=== PATIENT | male | born 1955 | race Caucasian/White ===

== ENCOUNTER 2017-12-17 16:09 | Inpatient (IN) | payer MEDICAID, OTHER ==
[~2017-12-17] VITALS: Ht 177.8 cm; Wt 60.3 kg
[2017-12-17] MEDS ORDERED: dexamethasone 4mg tablet PO ONE (16:25)
[2017-12-17] MEDS ORDERED: ipratropium/albuterol 3ml nebule NEB ONE (16:25)
[2017-12-17] MEDS ORDERED: CefTRIAXone 2gm/NS 100ml IVPB 100 ML IV ONE (16:30)
[2017-12-17] MEDS ORDERED: azithromycin 250mg tablet PO ONE (16:30)
[2017-12-17 16:41] LABS: BASOPHILS % (AUTO) 0.3 % (0-1); EOSINOPHILS # (AUTO) 0.2 X10'3 (0-0.9); EOSINOPHILS % (AUTO) 1.3 % (0-6); HEMATOCRIT 36.2 % (42.0-52.0); HEMOGLOBIN 12.1 g/dl (14.0-17.9); LYMPHOCYTES # (AUTO) 1.6 X10'3 (1.1-4.8); LYMPHOCYTES % (AUTO) 12.4 % (21-51); MEAN CORPUSCULAR HEMOGLOBIN 29.2 PG (27.0-31.0); MEAN CORPUSCULAR HGB CONC 33.5 % (33.0-36.5); MEAN CORPUSCULAR VOLUME 87.1 FL (78-98); MEAN PLATELET VOLUME 7.6 FL (7.4-10.4); MONOCYTES # (AUTO) 1.3 X10'3 (0-0.9); MONOCYTES % (AUTO) 9.5 % (2-12); NEUTROPHILS # (AUTO) 10.1 X10'3 (1.8-7.7); NEUTROPHILS % (AUTO) 76.5 % (42-75); PLATELET COUNT 759 X10'3 (140-440); RED BLOOD COUNT 4.16 X10'6 (4.70-6.10); RED CELL DISTRIBUTION WIDTH 13.5 % (11.5-14.5); WHITE BLOOD COUNT 13.1 X10'3 (4.5-11.0)
[2017-12-17 16:51] LABS: ABG BASE EXCESS 5.1 mmol/L (-2.0-3.0); ABG HCO3 29.4 mmol/L (22.0-26.0); ABG PCO2 (T) 42.2 mmHg (35.0-48.0); ABG PH (T) 7.461 (7.350-7.450); ABG PO2 (T) 77.7 mmHg (83-108); ALLEN'S TEST Positive; FLOW 4 L/min; FMetHb 0.1 % (0.3-1.12); TOTAL HEMOGLOBIN 12.2 G/dl (14.0-18.0)
[2017-12-17] MEDS ORDERED: NO HOME MEDS (17:05)
[2017-12-17 17:10] LABS: ALANINE AMINOTRANSFERASE 23 U/L (12-78); ALBUMIN 2.1 G/DL (3.4-5.0); ALBUMIN/GLOBULIN RATIO 0.3 (1.1-1.5); ALKALINE PHOSPHATASE 58 IU/L (46-116); ANION GAP 5 (8-16); ASPARTATE AMINO TRANSFERASE 18 U/L (10-37); BILIRUBIN,TOTAL 0.5 MG/DL (0.1-1.0); BLOOD UREA NITROGEN 10 MG/DL (7-18); BUN/CREATININE RATIO 13.7 (5.4-32.0); CALCIUM 8.7 MG/DL (8.5-10.1); CHLORIDE 101 MMOL/L (99-107); CREATININE 0.73 MG/DL (0.60-1.10); GLUCOSE 113 MG/DL (70-104); POTASSIUM 4.6 MMOL/L (3.5-5.1); SODIUM 139 MMOL/L (135-145); TOTAL PROTEIN 8.2 G/DL (6.4-8.2); eGFR > 90 ML/MIN
[2017-12-17 17:11] LABS: PLATELET ESTIMATE INCREASED; ROULEAUX 1+; TOTAL CELLS COUNTED 100
[2017-12-17 17:12] LABS: POLYCHROMASIA 1+; TOXIC GRANULATION 1+
[2017-12-17] MEDS ORDERED: heparin 10,000 units/1 ML INJ IV ONE ×2 (17:25→17:45)
[2017-12-17] MEDS ORDERED: heparin 10,000 units/1 ML INJ IV PRN (17:45)
[2017-12-17] MEDS ORDERED: iohexol 350MG/ML 100ml bottle IV ONE (17:49)
[2017-12-17 17:51] LABS: INR 1.1 INR
[2017-12-17] MEDS ORDERED: albuterol 2.5 MG/3 ML nebule CONTNEB PRN (21:45)
[2017-12-17] MEDS ORDERED: ondansetron/PF 4mg/2ml inj IV PRN (23:45)
[2017-12-17] MEDS ORDERED: mag hydrox/Alum hydrox/simeth 30ml oral suspension PO PRN (23:45)
[2017-12-17] MEDS ORDERED: magnesium 4gm in 100ml NS 100 ML IV PRN (23:45)
[2017-12-17] MEDS ORDERED: magnesium 2GM in 50ml NS 50 ML IV PRN (23:45)
[2017-12-17] MEDS ORDERED: magnesium hydroxide 30ml (MOM) UD suspension PO PRN (23:45)
[2017-12-17] MEDS ORDERED: potassium Cl 20 mEq SR tablet PO PRN ×2 (23:45)
[2017-12-17] MEDS ORDERED: potassium Cl 40MEQ/NS 500ml 500 ML IV PRN ×2 (23:45)
[2017-12-17] MEDS ORDERED: acetaminophen 325mg tablet PO PRN (23:45)
[2017-12-17] MEDS ORDERED: HYDROcodone/acetaminophen 10/325mg tab PO PRN (23:45)
[2017-12-17] MEDS ORDERED: magnesium Cl slow-release 64mg tablet PO PRN (23:45)
[2017-12-18] MEDS ORDERED: albuterol 2.5 MG/3 ML nebule NEB PRN (01:45)
[2017-12-18] MEDS: ipratropium/albuterol 3ml nebule NEB SCH ×3 (03:36→15:29)
[2017-12-18] MEDS: methylPREDNISolone sod succ 125mg/2ml vial IV SCH ×4 (04:32→19:50)
[2017-12-18] MEDS: normal saline 1000ml 1,000 ML IV SCH ×2 (04:33→13:25)
[2017-12-18 06:21] LABS: BASOPHILS % (AUTO) 0.1 % (0-1); EOSINOPHILS # (AUTO) 0.1 X10'3 (0-0.9); EOSINOPHILS % (AUTO) 1.7 % (0-6); HEMATOCRIT 32.9 % (42.0-52.0); HEMOGLOBIN 11.2 g/dl (14.0-17.9); LYMPHOCYTES # (AUTO) 0.4 X10'3 (1.1-4.8); LYMPHOCYTES % (AUTO) 5.3 % (21-51); MEAN CORPUSCULAR HEMOGLOBIN 29.4 PG (27.0-31.0); MEAN CORPUSCULAR HGB CONC 34.1 % (33.0-36.5); MEAN CORPUSCULAR VOLUME 86.2 FL (78-98); MEAN PLATELET VOLUME 7.4 FL (7.4-10.4); MONOCYTES # (AUTO) 0.3 X10'3 (0-0.9); NEUTROPHILS # (AUTO) 7.6 X10'3 (1.8-7.7); NEUTROPHILS % (AUTO) 89.9 % (42-75); PLATELET COUNT 590 X10'3 (140-440); RED BLOOD COUNT 3.82 X10'6 (4.70-6.10); RED CELL DISTRIBUTION WIDTH 13.2 % (11.5-14.5); WHITE BLOOD COUNT 8.5 X10'3 (4.5-11.0)
[2017-12-18 06:35] LABS: PLATELET ESTIMATE INCREASED; TOTAL CELLS COUNTED 100
[2017-12-18 06:36] LABS: MICROCYTOSIS FEW; POLYCHROMASIA FEW
[2017-12-18 06:49] LABS: ALANINE AMINOTRANSFERASE 25 U/L (12-78); ALBUMIN 1.9 G/DL (3.4-5.0); ALBUMIN/GLOBULIN RATIO 0.3 (1.1-1.5); ALKALINE PHOSPHATASE 54 IU/L (46-116); ANION GAP 5 (8-16); ASPARTATE AMINO TRANSFERASE 12 U/L (10-37); BILIRUBIN,TOTAL 0.3 MG/DL (0.1-1.0); BLOOD UREA NITROGEN 17 MG/DL (7-18); BUN/CREATININE RATIO 21.8 (5.4-32.0); CALCIUM 8.3 MG/DL (8.5-10.1); CHLORIDE 105 MMOL/L (99-107); CREATININE 0.78 MG/DL (0.60-1.10); GLUCOSE 205 MG/DL (70-104); MAGNESIUM 2.2 MG/DL (1.5-2.4); SODIUM 141 MMOL/L (135-145); TOTAL PROTEIN 7.4 G/DL (6.4-8.2); eGFR > 90 ML/MIN
[2017-12-18] MEDS: K and/or MAG REPLACEMENT MC SCH (07:33)
[2017-12-18] MEDS: pantoprazole 40mg Tablet.DR PO SCH (07:50)
[2017-12-18] MEDS: lactobacillus rhamnosus 10,000 MMU CELLS/CAPSULE PO SCH ×2 (08:12→19:50)
[2017-12-18] MEDS: CefTRIAXone 2gm/NS 100ml IVPB 100 ML IV SCH (08:15)
[2017-12-18] MEDS: heparin, porcine 5000 units/ml vial SQ SCH ×2 (08:16→19:50)
[2017-12-18] MEDS ORDERED: dextrose ORAL solution 15 GM/59 ML bottle PO PRN ×2 (11:55)
[2017-12-18] MEDS ORDERED: dextrose 50%-water 50ml dispensing syringe IV PRN ×2 (11:55)
[2017-12-18] MEDS ORDERED: glucagon, human recombinant 1mg kit SUBCUT PRN (11:55)
[2017-12-18] MEDS ORDERED: MESSAGE TO PHARMACY PO ONE (11:55)
[2017-12-18] MEDS: insulin Lispro (HumaLOG) vial - multi-dose SQ SCH (15:23)
[2017-12-18 19:00] VITALS: BP 114/56
[2017-12-18] MEDS: insulin glargine (Lantus) pen - multi-dose SQ SCH (21:39)
[2017-12-18] MEDS: temazepam 15mg capsule PO PRN (22:51)
[2017-12-19] VITALS: BP 114/56
[2017-12-19] MEDS: ipratropium/albuterol 3ml nebule NEB SCH ×5 (00:40→20:58)
[2017-12-19] MEDS: methylPREDNISolone sod succ 125mg/2ml vial IV SCH ×4 (02:19→23:51)
[2017-12-19 05:28] LABS: BASOPHILS % (AUTO) 0 % (0-1); EOSINOPHILS # (AUTO) 0.3 X10'3 (0-0.9); EOSINOPHILS % (AUTO) 1.7 % (0-6); HEMATOCRIT 29.5 % (42.0-52.0); HEMOGLOBIN 9.9 g/dl (14.0-17.9); LYMPHOCYTES # (AUTO) 0.6 X10'3 (1.1-4.8); LYMPHOCYTES % (AUTO) 3.7 % (21-51); MEAN CORPUSCULAR HEMOGLOBIN 29.2 PG (27.0-31.0); MEAN CORPUSCULAR HGB CONC 33.4 % (33.0-36.5); MEAN CORPUSCULAR VOLUME 87.4 FL (78-98); MEAN PLATELET VOLUME 7.8 FL (7.4-10.4); MONOCYTES # (AUTO) 0.4 X10'3 (0-0.9); MONOCYTES % (AUTO) 2.3 % (2-12); NEUTROPHILS # (AUTO) 15.9 X10'3 (1.8-7.7); NEUTROPHILS % (AUTO) 92.3 % (42-75); PLATELET COUNT 580 X10'3 (140-440); RED BLOOD COUNT 3.37 X10'6 (4.70-6.10); RED CELL DISTRIBUTION WIDTH 13.3 % (11.5-14.5); WHITE BLOOD COUNT 17.2 X10'3 (4.5-11.0)
[2017-12-19 06:15] LABS: ALANINE AMINOTRANSFERASE 19 U/L (12-78); ALBUMIN 1.7 G/DL (3.4-5.0); ALBUMIN/GLOBULIN RATIO 0.4 (1.1-1.5); ALKALINE PHOSPHATASE 42 IU/L (46-116); ANION GAP 4 (8-16); ASPARTATE AMINO TRANSFERASE 12 U/L (10-37); BILIRUBIN,TOTAL 0.2 MG/DL (0.1-1.0); BLOOD UREA NITROGEN 14 MG/DL (7-18); BUN/CREATININE RATIO 20.9 (5.4-32.0); CALCIUM 8.3 MG/DL (8.5-10.1); CHLORIDE 111 MMOL/L (99-107); CREATININE 0.67 MG/DL (0.60-1.10); GLUCOSE 173 MG/DL (70-104); MAGNESIUM 2.3 MG/DL (1.5-2.4); POTASSIUM 4.7 MMOL/L (3.5-5.1); SODIUM 144 MMOL/L (135-145); TOTAL CARBON DIOXIDE 29.1 MMOL/L (24-32); TOTAL PROTEIN 6.4 G/DL (6.4-8.2); eGFR > 90 ML/MIN
[2017-12-19] MEDS: K and/or MAG REPLACEMENT MC SCH (07:04)
[2017-12-19 08:00] VITALS: BP 100/56
[2017-12-19] MEDS ORDERED: azithromycin/NS 500mg/250ml 250 ML IV SCH (08:00)
[2017-12-19] MEDS: CefTRIAXone 2gm/NS 100ml IVPB 100 ML IV SCH (08:07)
[2017-12-19] MEDS: lactobacillus rhamnosus 10,000 MMU CELLS/CAPSULE PO SCH ×2 (08:09→20:29)
[2017-12-19] MEDS: pantoprazole 40mg Tablet.DR PO SCH (08:09)
[2017-12-19] MEDS: heparin, porcine 5000 units/ml vial SQ SCH ×2 (08:09→20:31)
[2017-12-19 11:00] VITALS: BP 96/44
[2017-12-19] MEDS: insulin Lispro (HumaLOG) vial - multi-dose SQ SCH (14:37)
[2017-12-19 19:00] VITALS: BP 102/52
[2017-12-19] MEDS: HYDROcodone/acetaminophen 5mg/325mg tablet PO PRN (20:28)
[2017-12-19] MEDS: insulin glargine (Lantus) pen - multi-dose SQ SCH (20:53)
[2017-12-19] MEDS: temazepam 15mg capsule PO PRN (23:47)
[2017-12-20] VITALS: BP 101/50
[2017-12-20] MEDS: ipratropium/albuterol 3ml nebule NEB SCH ×3 (04:02→21:25)
[2017-12-20 05:50] LABS: BASOPHILS % (AUTO) 0 % (0-1); EOSINOPHILS # (AUTO) 0.2 X10'3 (0-0.9); EOSINOPHILS % (AUTO) 1.6 % (0-6); HEMATOCRIT 28.9 % (42.0-52.0); HEMOGLOBIN 9.8 g/dl (14.0-17.9); LYMPHOCYTES # (AUTO) 0.4 X10'3 (1.1-4.8); LYMPHOCYTES % (AUTO) 3.1 % (21-51); MEAN CORPUSCULAR HEMOGLOBIN 29.3 PG (27.0-31.0); MEAN CORPUSCULAR HGB CONC 33.9 % (33.0-36.5); MEAN CORPUSCULAR VOLUME 86.4 FL (78-98); MEAN PLATELET VOLUME 7.6 FL (7.4-10.4); MONOCYTES # (AUTO) 0.3 X10'3 (0-0.9); MONOCYTES % (AUTO) 2.8 % (2-12); NEUTROPHILS # (AUTO) 11.4 X10'3 (1.8-7.7); NEUTROPHILS % (AUTO) 92.5 % (42-75); PLATELET COUNT 550 X10'3 (140-440); RED BLOOD COUNT 3.34 X10'6 (4.70-6.10); RED CELL DISTRIBUTION WIDTH 13.2 % (11.5-14.5); WHITE BLOOD COUNT 12.4 X10'3 (4.5-11.0)
[2017-12-20 06:02] LABS: ALANINE AMINOTRANSFERASE 19 U/L (12-78); ALBUMIN 1.8 G/DL (3.4-5.0); ALBUMIN/GLOBULIN RATIO 0.4 (1.1-1.5); ALKALINE PHOSPHATASE 43 IU/L (46-116); ANION GAP 5 (8-16); ASPARTATE AMINO TRANSFERASE 11 U/L (10-37); BILIRUBIN,TOTAL 0.2 MG/DL (0.1-1.0); BLOOD UREA NITROGEN 15 MG/DL (7-18); BUN/CREATININE RATIO 21.4 (5.4-32.0); CALCIUM 8.2 MG/DL (8.5-10.1); CHLORIDE 112 MMOL/L (99-107); GLUCOSE 189 MG/DL (70-104); LACTATE DEHYDROGENASE 100 U/L (85-227); MAGNESIUM 2.1 MG/DL (1.5-2.4); SODIUM 146 MMOL/L (135-145); TOTAL CARBON DIOXIDE 28.8 MMOL/L (24-32); TOTAL PROTEIN 6.1 G/DL (6.4-8.2); eGFR > 90 ML/MIN
[2017-12-20] MEDS: K and/or MAG REPLACEMENT MC SCH (07:13)
[2017-12-20] MEDS: pantoprazole 40mg Tablet.DR PO SCH (07:19)
[2017-12-20] MEDS: lactobacillus rhamnosus 10,000 MMU CELLS/CAPSULE PO SCH ×2 (07:20→20:43)
[2017-12-20] MEDS: azithromycin 250mg tablet PO SCH (07:21)
[2017-12-20] MEDS: heparin, porcine 5000 units/ml vial SQ SCH ×2 (07:23→20:44)
[2017-12-20] MEDS: methylPREDNISolone sod succ 125mg/2ml vial IV SCH (07:25)
[2017-12-20] MEDS: insulin Lispro (HumaLOG) vial - multi-dose SQ SCH (09:19)
[2017-12-20 10:53] LABS: HIV ANTIBODY 1&2 RAPID NON-REACTIVE (Neg)
[2017-12-20 11:00] VITALS: BP 106/60
[2017-12-20 19:00] VITALS: BP 99/51
[2017-12-20] MEDS ORDERED: lactobacillus rhamnosus 10,000 MMU CELLS/CAPSULE PO SCH (20:00)
[2017-12-20] MEDS: HYDROcodone/acetaminophen 5mg/325mg tablet PO PRN (20:59)
[2017-12-20] MEDS: insulin glargine (Lantus) pen - multi-dose SQ SCH (21:03)
[2017-12-20] MEDS: temazepam 15mg capsule PO PRN (23:07)
[2017-12-21] VITALS: BP 106/59
[2017-12-21] MEDS: ipratropium/albuterol 3ml nebule NEB SCH ×2 (03:42→09:00)
[2017-12-21 05:38] LABS: BASOPHILS % (AUTO) 0.2 % (0-1); EOSINOPHILS % (AUTO) 0.2 % (0-6); HEMATOCRIT 29.5 % (42.0-52.0); HEMOGLOBIN 9.7 g/dl (14.0-17.9); LYMPHOCYTES # (AUTO) 1.9 X10'3 (1.1-4.8); LYMPHOCYTES % (AUTO) 19.7 % (21-51); MEAN CORPUSCULAR HEMOGLOBIN 28.9 PG (27.0-31.0); MEAN CORPUSCULAR HGB CONC 32.8 % (33.0-36.5); MEAN CORPUSCULAR VOLUME 88.2 FL (78-98); MEAN PLATELET VOLUME 7.6 FL (7.4-10.4); MONOCYTES # (AUTO) 0.9 X10'3 (0-0.9); MONOCYTES % (AUTO) 9.8 % (2-12); NEUTROPHILS # (AUTO) 6.6 X10'3 (1.8-7.7); NEUTROPHILS % (AUTO) 70.1 % (42-75); PLATELET COUNT 513 X10'3 (140-440); RED BLOOD COUNT 3.35 X10'6 (4.70-6.10); RED CELL DISTRIBUTION WIDTH 13.4 % (11.5-14.5); WHITE BLOOD COUNT 9.4 X10'3 (4.5-11.0)
[2017-12-21 06:15] LABS: ALANINE AMINOTRANSFERASE 22 U/L (12-78); ALBUMIN 1.9 G/DL (3.4-5.0); ALBUMIN/GLOBULIN RATIO 0.5 (1.1-1.5); ALKALINE PHOSPHATASE 40 IU/L (46-116); ANION GAP 6 (8-16); ASPARTATE AMINO TRANSFERASE 11 U/L (10-37); BILIRUBIN,TOTAL 0.3 MG/DL (0.1-1.0); BLOOD UREA NITROGEN 13 MG/DL (7-18); BUN/CREATININE RATIO 15.5 (5.4-32.0); CALCIUM 8.1 MG/DL (8.5-10.1); CHLORIDE 110 MMOL/L (99-107); CREATININE 0.84 MG/DL (0.60-1.10); GLUCOSE 104 MG/DL (70-104); MAGNESIUM 1.9 MG/DL (1.5-2.4); POTASSIUM 3.9 MMOL/L (3.5-5.1); SODIUM 145 MMOL/L (135-145); TOTAL CARBON DIOXIDE 28.6 MMOL/L (24-32); TOTAL PROTEIN 5.8 G/DL (6.4-8.2); eGFR > 90 ML/MIN
[2017-12-21 07:00] VITALS: BP 113/57
[2017-12-21] MEDS ORDERED: prednisone 10mg tablet PO SCH (08:30)
[2017-12-21] MEDS ORDERED: IPRA3AMP9 NEB (08:31)
[2017-12-21] MEDS ORDERED: PRED10TA PO (08:31)
[2017-12-21] MEDS ORDERED: ALBU2.5V7 NEB (08:31)
[2017-12-21] MEDS ORDERED: AZI25OT PO (08:31)
[2017-12-21] MEDS ORDERED: PANT40TA4 PO (08:50)
[2017-12-21] MEDS: pantoprazole 40mg Tablet.DR PO SCH (09:44)
[2017-12-21] MEDS: lactobacillus rhamnosus 10,000 MMU CELLS/CAPSULE PO SCH (09:44)
[2017-12-21] MEDS: azithromycin 250mg tablet PO SCH (09:45)
[2017-12-21] MEDS: heparin, porcine 5000 units/ml vial SQ SCH (09:46)
[2017-12-21 11:00] VITALS: BP 122/60
== END 2017-12-21 13:20 | disposition home or self-care (01) | DRG 137 ==
LOC: ER 16:10 → ED HOLD 23:41 → SUR 3N 12-18 19:02
PROVIDERS: ADMIT Internal Medicine; ATTEND Internal Medicine
PROC: B32T1ZZ Computerized Tomography (CT Scan) of Left Pulmonary Artery using Low Osmolar Contrast (ICD-10-PCS; principal; 2017-12-17)
PROC: B3201ZZ Computerized Tomography (CT Scan) of Thoracic Aorta using Low Osmolar Contrast (ICD-10-PCS; 2017-12-17)
PROC: B32S1ZZ Computerized Tomography (CT Scan) of Right Pulmonary Artery using Low Osmolar Contrast (ICD-10-PCS; 2017-12-17)
DX: B59 Pneumocystosis (principal); J96.21 Acute and chronic respiratory failure with hypoxia; E44.1 Mild protein-calorie malnutrition; J44.0 Chronic obstructive pulmonary disease with (acute) lower respiratory infection; D64.9 Anemia, unspecified; I88.9 Nonspecific lymphadenitis, unspecified; D47.3 Essential (hemorrhagic) thrombocythemia; R79.1 Abnormal coagulation profile; T38.0X5A Adverse effect of glucocorticoids and synthetic analogues, initial encounter; Z87.891 Personal history of nicotine dependence; Z82.5 Family history of asthma and other chronic lower respiratory diseases; Z68.1 Body mass index [BMI] 19.9 or less, adult
CPT/HCPCS: 36415; 36600; 71045; 71275; 80053; 82803; 82948; 83605; 83615; 83735; 83880; 84145; 84484; 85018; 85025; 85379; 85610; 86703; 87040; 87070; 87502; 87503; 93005; 93306; 94060; 94640; 94760; 96365; 99291; A6212; J0456; J0696; J1644; J1815; J2930; J7030; J7512; J8540; Q9967

== ENCOUNTER 2019-04-24 05:43 | Inpatient (IN) | payer MEDICAID ==
[~2019-04-24] VITALS: Ht 177.8 cm; Wt 65.0 kg
[~2019-04-24 05:43] MED LIST: ALBU2.5V7 NEB; AZI25OT PO; DICY10CA88 PO; IPRA3AMP9 NEB; NO HOME MEDS; PANT-47 PO; PANT40TA4 PO; PRED10TA PO
[2019-04-24 06:40] LABS: BASOPHILS % (AUTO) 0.4 % (0-1); EOSINOPHILS % (AUTO) 0.1 % (0-6); HEMOGLOBIN 14.5 g/dl (14.0-17.9); LYMPHOCYTES # (AUTO) 2.2 X10'3 (1.1-4.8); LYMPHOCYTES % (AUTO) 20.4 % (21-51); MEAN CORPUSCULAR HEMOGLOBIN 30.7 PG (27.0-31.0); MEAN CORPUSCULAR HGB CONC 33.6 g/dL (33.0-36.5); MEAN CORPUSCULAR VOLUME 91.4 FL (78-98); MEAN PLATELET VOLUME 9.4 FL (7.4-10.4); MONOCYTES # (AUTO) 1.3 X10'3 (0-0.9); MONOCYTES % (AUTO) 11.8 % (2-12); NEUTROPHILS # (AUTO) 7.3 X10'3 (1.8-7.7); NEUTROPHILS % (AUTO) 67.3 % (42-75); PLATELET COUNT 162 X10'3 (140-440); RED BLOOD COUNT 4.71 X10'6 (4.70-6.10); RED CELL DISTRIBUTION WIDTH 14.4 % (11.5-14.5); WHITE BLOOD COUNT 10.9 X10'3 (4.5-11.0)
[2019-04-24] MEDS ORDERED: normal saline 1000ML IV soln IVB ONE ×2 (06:40→11:00)
[2019-04-24] MEDS ORDERED: ondansetron/PF 4mg/2ml inj IV ONE (06:40)
[2019-04-24] MEDS ORDERED: morphine 4 MG/ML inj SYRINge IV PRN (06:40)
[2019-04-24 07:05] LABS: ALBUMIN 2.7 G/DL (3.4-5.0); ALKALINE PHOSPHATASE 189 IU/L (46-116); ANION GAP 20 (8-16); BILIRUBIN,TOTAL 2.2 MG/DL (0.1-1.0); BLOOD UREA NITROGEN 10 MG/DL (7-18); BUN/CREATININE RATIO 14.5 (5.4-32.0); CALCIUM 7.6 MG/DL (8.5-10.1); CHLORIDE 99 MMOL/L (99-107); CREATININE 0.69 MG/DL (0.60-1.10); LIPASE 105 U/L (73-393); SODIUM 137 MMOL/L (135-145); TOTAL CARBON DIOXIDE 18.4 MMOL/L (24-32); eGFR > 90 ML/MIN
[2019-04-24 07:10] LABS: GLUCOSE 124 MG/DL (70-104); POTASSIUM 4.1 MMOL/L (3.5-5.1)
[2019-04-24 07:11] LABS: ALBUMIN/GLOBULIN RATIO 0.8 (1.1-1.5); TOTAL PROTEIN 6.1 G/DL (6.4-8.2)
[2019-04-24 07:34] LABS: ALANINE AMINOTRANSFERASE 727 U/L (12-78)
[2019-04-24 07:38] LABS: ASPARTATE AMINO TRANSFERASE 2007 U/L (10-37)
[2019-04-24 07:49] LABS: CLARITY,URINE CLEAR (Clear); COLOR,URINE YELLOW (Yellow); GLUCOSE, URINE NEGATIVE (Neg); KETONES,URINE 15 mg/dl (Neg); LEUKOCYTE ESTERASE ,URINE NEGATIVE (Neg); NITRITES, URINE NEGATIVE (Neg); OCCULT BLOOD,URINE NEGATIVE (Neg); PROTEIN,URINE NEGATIVE (Neg); UA COLLECTION TYPE CLN CATCH MIDSTREAM
[2019-04-24] MEDS ORDERED: LIDOcaine Viscous 15ml cup PO ONE (08:45)
[2019-04-24] MEDS ORDERED: mag hydrox/Alum hydrox/simeth 30ml oral suspension PO ONE (08:45)
[2019-04-24] MEDS ORDERED: proCHLORperazine 10 MG/2 ml inj IV ONE (08:45)
[2019-04-24] MEDS ORDERED: famotidine 20mg tablet PO ONE (08:45)
--- NOTE | 2019-04-24 09:26 | NUR ---
pt states he is feeling alittle bit better after meds
[2019-04-24] MEDS ORDERED: methylPREDNISolone sod succ 125mg/2ml vial IV ONE (09:45)
[2019-04-24] MEDS ORDERED: ipratropium/albuterol 3ml nebule NEB ONE (09:45)
[2019-04-24 09:57] LABS: ETHANOL < 0.010 GM/DL (0.0-0.010)
[2019-04-24] MEDS ORDERED: vancomycin/NS 1 GM ADD-VANTAGE 250 ML IV ONE (11:15)
[2019-04-24] MEDS ORDERED: piperacillin/tazo 3.375gm/50ml 50 ML IV ONE (11:15)
[2019-04-24] MEDS ORDERED: iohexol 300mg/ml 100ml inj. ONE (11:39)
[2019-04-24 12:23] LABS: INR 1.5 INR; PARTIAL THROMBOPLASTIN TIME 36.3 SECONDS (24.5-30.9); PROTHROMBIN TIME 17.5 SECONDS (9-12)
--- NOTE | 2019-04-24 13:21 | NUR ---
PT AT BEDSIDE INFORMED ABT THE PLAN OF CARE ,PT DENIES ANY CONCERN OR QUEST.WILL CONT TO MONITOR.[id number] ON RA.
[2019-04-24] MEDS ORDERED: ALBU6.7H9 IH (14:23)
[2019-04-24 14:26] LABS: ACETAMINOPHEN < 2.0 UG/ML (10-30)
[2019-04-24] MEDS ORDERED: magnesium Cl slow-release 64mg tablet PO PRN (15:05)
[2019-04-24] MEDS ORDERED: potassium Cl 20 mEq SR tablet PO PRN ×2 (15:05)
[2019-04-24] MEDS ORDERED: magnesium 4gm in 100ml NS 100 ML IV PRN (15:05)
[2019-04-24] MEDS ORDERED: magnesium 2GM in 50ml NS 50 ML IV PRN (15:05)
[2019-04-24] MEDS ORDERED: potassium CL 10mEq/100ml bag 100 ML IV PRN ×2 (15:05)
[2019-04-24] MEDS ORDERED: ondansetron/PF 4mg/2ml inj IV PRN (15:05)
[2019-04-24] MEDS: normal saline 1000ml 1,000 ML IV SCH (15:27)
[2019-04-24 15:58] LABS: ALBUMIN 2.6 G/DL (3.4-5.0); ALKALINE PHOSPHATASE 174 IU/L (46-116)
[2019-04-24 16:15] LABS: ALANINE AMINOTRANSFERASE 751 U/L (12-78); ALBUMIN/GLOBULIN RATIO 0.9 (1.1-1.5); BILIRUBIN,DIRECT 1.5 MG/DL (0-0.3); TOTAL PROTEIN 5.6 G/DL (6.4-8.2)
[2019-04-24 16:22] LABS: ASPARTATE AMINO TRANSFERASE 1689 U/L (10-37)
[2019-04-24] MEDS ORDERED: LORazepam 0.5 MG tablet PO PRN (18:05)
--- NOTE | 2019-04-24 18:12 | NUR ---
Received report from OLGA Mcgraw. Patient is awake and alert on room air, in no apparent distress. Sitting up having dinner. Call light and items of frequent use within reach. Will continue to monitor.
[2019-04-24 18:15] VITALS: BP 122/70
[2019-04-24] MEDS: LORazepam 0.5 MG tablet PO ONE ×2 (18:27→19:36)
[2019-04-24] MEDS: ESOMEPRAZOLE 40 MG VIAL IV SCH (19:26)
[2019-04-24 20:00] VITALS: BP 121/70
[2019-04-25] VITALS: BP 119/56
[2019-04-25] MEDS: normal saline 1000ml 1,000 ML IV SCH ×3 (03:28→21:05)
--- NOTE | 2019-04-25 04:38 | NUR ---
sow farm technician informed me that patient is complaining of chest pain. Upon asking patient to describe pain, patient verbalized "its more in the upper abdomen. I have back issues, so I feel compressed from laying on my back. Its more of a discomfort than pain." offered PRN pain medication, patient stated he wanted something to calm him down. Administered PRN antianxiety medication per MD order. Vital Signs: Temp 97.9 NH: 87, RR: 20, Pulse Ox: 95% RA, BP: 140/75. Will continue to monitor.
[2019-04-25 05:45] LABS: BASOPHILS % (AUTO) 0.4 % (0-1); EOSINOPHILS % (AUTO) 0 % (0-6); HEMATOCRIT 38.3 % (42.0-52.0); HEMOGLOBIN 12.4 g/dl (14.0-17.9); LYMPHOCYTES # (AUTO) 0.5 X10'3 (1.1-4.8); LYMPHOCYTES % (AUTO) 5.4 % (21-51); MEAN CORPUSCULAR HEMOGLOBIN 29.8 PG (27.0-31.0); MEAN CORPUSCULAR HGB CONC 32.4 g/dL (33.0-36.5); MEAN CORPUSCULAR VOLUME 91.9 FL (78-98); MEAN PLATELET VOLUME 9.9 FL (7.4-10.4); MONOCYTES # (AUTO) 0.6 X10'3 (0-0.9); MONOCYTES % (AUTO) 6.2 % (2-12); NEUTROPHILS # (AUTO) 8.4 X10'3 (1.8-7.7); PLATELET COUNT 139 X10'3 (140-440); RED BLOOD COUNT 4.16 X10'6 (4.70-6.10); RED CELL DISTRIBUTION WIDTH 14.3 % (11.5-14.5); WHITE BLOOD COUNT 9.6 X10'3 (4.5-11.0)
[2019-04-25 06:09] LABS: ALANINE AMINOTRANSFERASE 618 U/L (12-78); ALBUMIN 2.5 G/DL (3.4-5.0); ALBUMIN/GLOBULIN RATIO 0.8 (1.1-1.5); ALKALINE PHOSPHATASE 161 IU/L (46-116); ANION GAP 12 (8-16); BILIRUBIN,TOTAL 2.1 MG/DL (0.1-1.0); BLOOD UREA NITROGEN 6 MG/DL (7-18); BUN/CREATININE RATIO 7.1 (5.4-32.0); CALCIUM 7.7 MG/DL (8.5-10.1); CHLORIDE 109 MMOL/L (99-107); CREATININE 0.84 MG/DL (0.60-1.10); GLUCOSE 172 MG/DL (70-104); MAGNESIUM 1.9 MG/DL (1.5-2.4); SODIUM 144 MMOL/L (135-145); TOTAL CARBON DIOXIDE 23.2 MMOL/L (24-32); TOTAL PROTEIN 5.6 G/DL (6.4-8.2); eGFR > 90 ML/MIN
[2019-04-25 06:13] LABS: ASPARTATE AMINO TRANSFERASE 1114 U/L (10-37); POTASSIUM 4.1 MMOL/L (3.5-5.1)
--- NOTE | 2019-04-25 06:14 | NUR ---
Reported off to OLGA Mcgraw. Patient resting comfortably.
[2019-04-25 07:00] VITALS: BP 122/67
[2019-04-25] MEDS: K and/or MAG REPLACEMENT MC SCH (08:00)
[2019-04-25] MEDS ORDERED: LORazepam 1 MG tablet PO STA (08:34)
[2019-04-25] MEDS ORDERED: LORazepam 0.5 MG tablet PO STA (08:39)
[2019-04-25] MEDS: ESOMEPRAZOLE 40 MG VIAL IV SCH ×2 (08:48→19:36)
[2019-04-25 12:00] VITALS: BP 113/55
[2019-04-25 18:00] VITALS: BP 123/69
--- NOTE | 2019-04-25 18:15 | NUR ---
Patient in room LIO 356. I have received report from OLGA Mcgraw and had the opportunity to ask questions and assume patient care.
[2019-04-26] VITALS: BP 123/69
[2019-04-26] MEDS: normal saline 1000ml 1,000 ML IV SCH ×2 (02:00→17:53)
[2019-04-26 05:34] LABS: BASOPHILS % (AUTO) 0.2 % (0-1); EOSINOPHILS % (AUTO) 0.1 % (0-6); HEMATOCRIT 34.2 % (42.0-52.0); HEMOGLOBIN 11.2 g/dl (14.0-17.9); LYMPHOCYTES % (AUTO) 22.5 % (21-51); MEAN CORPUSCULAR HEMOGLOBIN 30.2 PG (27.0-31.0); MEAN CORPUSCULAR HGB CONC 32.9 g/dL (33.0-36.5); MEAN CORPUSCULAR VOLUME 91.8 FL (78-98); MEAN PLATELET VOLUME 10.1 FL (7.4-10.4); MONOCYTES # (AUTO) 0.8 X10'3 (0-0.9); MONOCYTES % (AUTO) 9.4 % (2-12); NEUTROPHILS # (AUTO) 6.1 X10'3 (1.8-7.7); NEUTROPHILS % (AUTO) 67.8 % (42-75); PLATELET COUNT 113 X10'3 (140-440); RED BLOOD COUNT 3.72 X10'6 (4.70-6.10); RED CELL DISTRIBUTION WIDTH 14.6 % (11.5-14.5)
[2019-04-26 05:43] LABS: ALANINE AMINOTRANSFERASE 418 U/L (12-78); ALBUMIN/GLOBULIN RATIO 0.7 (1.1-1.5); ALKALINE PHOSPHATASE 186 IU/L (46-116); ANION GAP 2 (8-16); ASPARTATE AMINO TRANSFERASE 475 U/L (10-37); BILIRUBIN,TOTAL 1.9 MG/DL (0.1-1.0); BLOOD UREA NITROGEN 8 MG/DL (7-18); BUN/CREATININE RATIO 11.4 (5.4-32.0); CALCIUM 7.6 MG/DL (8.5-10.1); CHLORIDE 115 MMOL/L (99-107); GLUCOSE 116 MG/DL (70-104); POTASSIUM 4.1 MMOL/L (3.5-5.1); SODIUM 145 MMOL/L (135-145); TOTAL CARBON DIOXIDE 27.6 MMOL/L (24-32); TOTAL PROTEIN 4.7 G/DL (6.4-8.2); eGFR > 90 ML/MIN
--- NOTE | 2019-04-26 06:10 | NUR ---
Problems reprioritized. Patient report given, questions answered & plan of care reviewed with OLGA Mcgraw.
[2019-04-26 07:00] VITALS: BP 143/72
[2019-04-26] MEDS: K and/or MAG REPLACEMENT MC SCH (08:00)
[2019-04-26] MEDS: ESOMEPRAZOLE 40 MG VIAL IV SCH ×2 (09:27→20:00)
[2019-04-26 09:32] LABS: HBSAG SCREEN Negative (Negative); HEP A AB, IGM Negative (Negative); HEP B CORE AB, IGM Negative (Negative); HEPATITIS C ANTIBODY 0.1 s/co ratio (0.0-0.9)
--- NOTE | 2019-04-26 11:08 | NUR ---
Initial: Pt admit with c/o N/V and abdominal pain x 1 day with abnormal LFT. Pt s/p CT of the abdomen in the ER which showed fatty infiltration of the liver. MRCP is negative for cholelithiasis and choledocholithiasis and LFT trending down per MD notes. Pt with hx heavy Etoh abuse, to start MVI per MD notes. Pt currently on regular diet with documented 100% PO intake yesterday however 25% at breakfast this morning. LBM 04/25. No edema or wounds. No nutrition diagnosis at this time. Will continue to follow and monitor need for ONS pending trends in PO intake. Recommendations: 1) Continue regular diet 2) Monitor need for ONS 3) Thiamine, Folic acid, MVI given hx Etoh abuse per MD approval 4) Wt per rx Addendum: 04/26/19 at [address] Amended: Links added.
[2019-04-26 12:00] VITALS: BP 124/70
[2019-04-26 20:00] VITALS: BP 116/69
[2019-04-27] VITALS: BP 114/63
[2019-04-27 06:25] LABS: BASOPHILS % (AUTO) 0.7 % (0-1); EOSINOPHILS % (AUTO) 0.8 % (0-6); HEMATOCRIT 36.4 % (42.0-52.0); HEMOGLOBIN 11.9 g/dl (14.0-17.9); LYMPHOCYTES % (AUTO) 32.6 % (21-51); MEAN CORPUSCULAR HEMOGLOBIN 29.7 PG (27.0-31.0); MEAN CORPUSCULAR HGB CONC 32.8 g/dL (33.0-36.5); MEAN CORPUSCULAR VOLUME 90.6 FL (78-98); MEAN PLATELET VOLUME 9.9 FL (7.4-10.4); MONOCYTES # (AUTO) 0.8 X10'3 (0-0.9); MONOCYTES % (AUTO) 12.7 % (2-12); NEUTROPHILS # (AUTO) 3.2 X10'3 (1.8-7.7); NEUTROPHILS % (AUTO) 53.2 % (42-75); PLATELET COUNT 109 X10'3 (140-440); RED BLOOD COUNT 4.02 X10'6 (4.70-6.10); RED CELL DISTRIBUTION WIDTH 13.9 % (11.5-14.5); WHITE BLOOD COUNT 6.1 X10'3 (4.5-11.0)
[2019-04-27 06:47] LABS: ALANINE AMINOTRANSFERASE 372 U/L (12-78); ALBUMIN/GLOBULIN RATIO 0.6 (1.1-1.5); ALKALINE PHOSPHATASE 267 IU/L (46-116); ANION GAP 4 (8-16); ASPARTATE AMINO TRANSFERASE 355 U/L (10-37); BILIRUBIN,TOTAL 2.2 MG/DL (0.1-1.0); BLOOD UREA NITROGEN 9 MG/DL (7-18); CALCIUM 7.8 MG/DL (8.5-10.1); CHLORIDE 109 MMOL/L (99-107); CREATININE 0.69 MG/DL (0.60-1.10); GLUCOSE 94 MG/DL (70-104); MAGNESIUM 1.8 MG/DL (1.5-2.4); POTASSIUM 3.9 MMOL/L (3.5-5.1); SODIUM 143 MMOL/L (135-145); TOTAL CARBON DIOXIDE 30.2 MMOL/L (24-32); TOTAL PROTEIN 5.2 G/DL (6.4-8.2); eGFR > 90 ML/MIN
[2019-04-27 07:30] VITALS: BP 126/74
[2019-04-27] MEDS: ESOMEPRAZOLE 40 MG VIAL IV SCH (07:47)
[2019-04-27] MEDS: K and/or MAG REPLACEMENT MC SCH (07:51)
[2019-04-27 08:04] LABS: PLATELET ESTIMATE DECREASED
[2019-04-27 08:05] LABS: STOMATOCYTES 1+
[2019-04-27] MEDS ORDERED: PANT-47 PO (10:38)
--- NOTE | 2019-04-27 11:04 | NUR ---
Patient discharged home stable and appropriate with family member. All belongings taken from room. IV removed. New prescription called into [facility] pharmacy in [place]. Discharge instructions given and reviewed with patient and family member. All questions answered.
== END 2019-04-27 11:08 | disposition home or self-care (01) | DRG 241 ==
LOC: ER 05:43 → SUR 3N 16:15 → CMPBEDREQ 19:47
PROVIDERS: ADMIT Internal Medicine; ATTEND Internal Medicine
PROC: BW211ZZ Computerized Tomography (CT Scan) of Abdomen and Pelvis using Low Osmolar Contrast (ICD-10-PCS; principal; 2019-04-24)
DX: K29.20 Alcoholic gastritis without bleeding (principal); D68.4 Acquired coagulation factor deficiency; K74.60 Unspecified cirrhosis of liver; D64.9 Anemia, unspecified; J44.1 Chronic obstructive pulmonary disease with (acute) exacerbation; F10.20 Alcohol dependence, uncomplicated; K76.0 Fatty (change of) liver, not elsewhere classified; F14.90 Cocaine use, unspecified, uncomplicated; R00.0 Tachycardia, unspecified; R16.0 Hepatomegaly, not elsewhere classified; Z87.891 Personal history of nicotine dependence; Z79.899 Other long term (current) drug therapy
CPT/HCPCS: 36415; 71045; 74177; 74181; 76700; 80053; 80076; 80320; 80329; 81003; 83605; 83690; 83735; 84145; 85025; 86705; 86706; 86709; 86803; 87040; 87045; 87046; 87081; 87340; 93005; 94640; 94760; 96374; 96375; 99285; G0378; J0780; J2270; J2405; J2543; J2930; J3370; J7030; Q9967

== ENCOUNTER 2023-12-13 18:35 | Emergency (ER) | payer MEDICARE, MEDICAID ==
[~2023-12-13] VITALS: Ht 177.8 cm; Wt 65.0 kg
[~2023-12-13 18:35] MED LIST changes: -ALBU2.5V7 NEB; +ALBU6.7H14 IH; -AZI25OT PO; -DICY10CA88 PO; -IPRA3AMP9 NEB; -NO HOME MEDS; -PANT40TA4 PO; -PRED10TA PO
[2023-12-13 19:44] LABS: BILIRUBIN,URINE NEGATIVE (Neg); CLARITY,URINE CLOUDY (Clear); COLOR,URINE YELLOW (Yellow); GLUCOSE, URINE NEGATIVE (Neg); KETONES,URINE 15 mg/dl (Neg); LEUKOCYTE ESTERASE ,URINE TRACE (Neg); NITRITES, URINE NEGATIVE (Neg); OCCULT BLOOD,URINE TRACE-INTACT (Neg); PH,URINE 5.5 (4.8-8.0); PROTEIN,URINE 30 mg/dl (Neg); UROBILINOGEN,URINE 0.2 E.U/dL (0.2-1.0)
[2023-12-13 19:51] LABS: UA COLLECTION TYPE CLN CATCH MIDSTREAM
[2023-12-13] MEDS: ondansetron/PF 4mg/2ml inj IV ONE (19:51)
[2023-12-13] MEDS: morphine 4 MG/ML inj SYRINge IV ONE (19:52)
[2023-12-13 19:54] LABS: BACTERIA,URINE 1+ /HPF (Neg); MUCUS STRANDS FEW /LPF (Neg); SQUAMOUS EPITHELIAL CELL,UR FEW /LPF (FEW)
[2023-12-13 19:55] LABS: WBC CLUMPS,URINE FEW /HPF (NEGATIVE)
[2023-12-13 20:03] LABS: BASOPHILS # (AUTO) 0.1 X10'3 (0-0.2); EOSINOPHILS # (AUTO) 0.2 X10'3 (0-0.9); HEMATOCRIT 35.2 % (42.0-52.0); HEMOGLOBIN 11.7 g/dl (14.0-17.9); LYMPHOCYTES # (AUTO) 0.8 X10'3 (1.1-4.8); LYMPHOCYTES % (AUTO) 8.8 % (21-51); MEAN CORPUSCULAR HEMOGLOBIN 28.1 PG (27.0-31.0); MEAN CORPUSCULAR HGB CONC 33.2 g/dL (33.0-36.5); MEAN CORPUSCULAR VOLUME 84.7 FL (78-98); MONOCYTES # (AUTO) 1.1 X10'3 (0-0.9); MONOCYTES % (AUTO) 11.8 % (2-12); NEUTROPHILS # (AUTO) 7.2 X10'3 (1.8-7.7); NEUTROPHILS % (AUTO) 76.4 % (42-75); PLATELET COUNT 351 X10'3 (140-440); RED BLOOD COUNT 4.16 X10'6 (4.70-6.10); RED CELL DISTRIBUTION WIDTH 14.6 % (11.5-14.5); WHITE BLOOD COUNT 9.4 X10'3 (4.5-11.0)
[2023-12-13 20:11] LABS: ALANINE AMINOTRANSFERASE 11 U/L (12-78); ALBUMIN 3.1 G/DL (3.4-5.0); ALBUMIN/GLOBULIN RATIO 0.7 (1.1-1.5); ALKALINE PHOSPHATASE 42 IU/L (46-116); ANION GAP 13 (8-16); ASPARTATE AMINO TRANSFERASE 10 U/L (10-37); BILIRUBIN,TOTAL 0.3 MG/DL (0.1-1.0); BLOOD UREA NITROGEN 15 MG/DL (7-18); BUN/CREATININE RATIO 14.3 (10.0-20.0); CHLORIDE 104 MMOL/L (99-107); CREATININE 1.05 MG/DL (0.60-1.10); GLUCOSE 104 MG/DL (70-104); LIPASE 20 U/L (16-77); POTASSIUM 4.2 MMOL/L (3.5-5.1); SODIUM 142 MMOL/L (135-145); TOTAL CARBON DIOXIDE 25.5 MMOL/L (24-32); TOTAL PROTEIN 7.3 G/DL (6.4-8.2); eCRCL 62 ML/MIN; eGFR 70 ML/MIN
[2023-12-13] MEDS ORDERED: iohexol 300mg/ml 100ml inj. ONE (20:31)
[2023-12-13] MEDS: CefTRIAXone 2gm/D5W 50ml BAG 50 ML IV ONE (21:07)
[2023-12-13] MEDS ORDERED: LEVO-65 PO (21:22)
[2023-12-13] MEDS ORDERED: OXYC-145 PO (21:22)
[2023-12-13 21:52] VITALS: BP 142/72; PULSE 98; RESP 16; TEMP 99.4; O2SAT 96
== END 2023-12-13 21:56 | disposition home or self-care (01) ==
LOC: ER 18:36
DX: N41.8 Other inflammatory diseases of prostate (principal); C67.9 Malignant neoplasm of bladder, unspecified; Z79.899 Other long term (current) drug therapy
CPT/HCPCS: 36415; 74177; 80053; 81001; 83690; 85025; 87088; 96365; 96375; 99285; J0696; J2270; J2405; J3490; Q9967

== ENCOUNTER 2024-04-10 18:08 | Emergency (ER) | payer MEDICARE, MEDICAID ==
[~2024-04-10] VITALS: Ht 172.7 cm; Wt 58.0 kg
[~2024-04-10 18:08] MED LIST changes: +OXYC-145 PO
[2024-04-10 18:51] LABS: BASOPHILS # (AUTO) 0.1 X10'3 (0-0.2); EOSINOPHILS # (AUTO) 0.1 X10'3 (0-0.9); EOSINOPHILS % (AUTO) 1.2 % (0-6); HEMATOCRIT 30.8 % (42.0-52.0); LYMPHOCYTES # (AUTO) 0.7 X10'3 (1.1-4.8); LYMPHOCYTES % (AUTO) 6.2 % (21-51); MEAN CORPUSCULAR HEMOGLOBIN 26.7 PG (27.0-31.0); MEAN CORPUSCULAR HGB CONC 32.5 g/dL (33.0-36.5); MEAN CORPUSCULAR VOLUME 82.3 FL (78-98); MONOCYTES # (AUTO) 0.9 X10'3 (0-0.9); MONOCYTES % (AUTO) 8.1 % (2-12); NEUTROPHILS % (AUTO) 83.5 % (42-75); PLATELET COUNT 368 X10'3 (140-440); RED BLOOD COUNT 3.74 X10'6 (4.70-6.10); RED CELL DISTRIBUTION WIDTH 15.4 % (11.5-14.5); WHITE BLOOD COUNT 10.8 X10'3 (4.5-11.0)
[2024-04-10 19:30] LABS: ALANINE AMINOTRANSFERASE 18 U/L (12-78); ALBUMIN 2.9 G/DL (3.4-5.0); ALBUMIN/GLOBULIN RATIO 0.6 (1.1-1.5); ALKALINE PHOSPHATASE 110 IU/L (46-116); ANION GAP 12 (8-16); ASPARTATE AMINO TRANSFERASE 43 U/L (10-37); BILIRUBIN,TOTAL 0.4 MG/DL (0.1-1.0); BLOOD UREA NITROGEN 22 MG/DL (7-18); BUN/CREATININE RATIO 15.9 (10.0-20.0); CALCIUM 9.4 MG/DL (8.5-10.1); CHLORIDE 98 MMOL/L (99-107); CREATININE 1.38 MG/DL (0.60-1.10); GLUCOSE 112 MG/DL (70-104); LIPASE 23 U/L (16-77); POTASSIUM 5.2 MMOL/L (3.5-5.1); SODIUM 134 MMOL/L (135-145); TOTAL CARBON DIOXIDE 24.5 MMOL/L (24-32); TOTAL PROTEIN 7.7 G/DL (6.4-8.2); eCRCL 42 ML/MIN; eGFR 51 ML/MIN
[2024-04-10 19:41] LABS: APTT 28 SECONDS (22-32); INR 1.1 INR
[2024-04-10 20:18] LABS: BILIRUBIN,URINE NEGATIVE (Neg); CLARITY,URINE CLOUDY (Clear); COLOR,URINE YELLOW (Yellow); GLUCOSE, URINE NEGATIVE (Neg); KETONES,URINE NEGATIVE (Neg); LEUKOCYTE ESTERASE ,URINE LARGE (Neg); NITRITES, URINE NEGATIVE (Neg); OCCULT BLOOD,URINE SMALL (Neg); PH,URINE 6.5 (4.8-8.0); PROTEIN,URINE 30 mg/dl (Neg); UROBILINOGEN,URINE 0.2 E.U/dL (0.2-1.0)
[2024-04-10 20:42] LABS: UA COLLECTION TYPE FOLEY CATH
[2024-04-10 20:43] LABS: BACTERIA,URINE 1+ /HPF (Neg); WBC,URINE 30-50 /HPF (0-4)
[2024-04-10 20:44] LABS: AMORPHOUS PHOSPHATES 1+; MUCUS STRANDS FEW /LPF (Neg); SQUAMOUS EPITHELIAL CELL,UR FEW /LPF (FEW); TRANSITIONAL EPI CELLS,URINE FEW /HPF
[2024-04-10] MEDS ORDERED: PHEN-824 PO (22:14)
[2024-04-10] MEDS: HYDROmorphone 1 mg/ml syringe IM ONE (22:34)
[2024-04-10] MEDS: ondansetron 4mg rapidly disintigrating tab PO ONE (22:35)
[2024-04-10] MEDS: CefTRIAXone 1000mg IM Kit (w/lidocaine diluent) IM ONE (22:36)
[2024-04-10 22:56] VITALS: BP 142/77; PULSE 74; RESP 16; TEMP 98.2; O2SAT 98
== END 2024-04-10 22:59 | disposition home or self-care (01) ==
LOC: ER 18:09
DX: N39.0 Urinary tract infection, site not specified (principal); N32.89 Other specified disorders of bladder; N13.30 Unspecified hydronephrosis; Z79.899 Other long term (current) drug therapy
CPT/HCPCS: 36415; 74176; 80053; 81001; 83690; 85025; 85610; 85730; 87088; 96372; 99285; J0696; J1170; 87186

== ENCOUNTER 2024-04-22 13:30 | Emergency (ER) | payer MEDICARE, MEDICAID ==
[~2024-04-22] VITALS: Ht 172.7 cm; Wt 53.2 kg
[~2024-04-22 13:30] MED LIST changes: +AMOX-580 PO; +PHEN-824 PO
[2024-04-22] MEDS: LidoCAINE 2% Topical Jelly 11mL syringe (UROJET) TOP ONE (14:46)
[2024-04-22] MEDS: morphine 4 MG/ML inj SYRINge IM ONE (14:46)
[2024-04-22 17:08] VITALS: BP 118/72; PULSE 95; RESP 18; TEMP 98.2; O2SAT 95
== END 2024-04-22 17:17 | disposition home or self-care (01) ==
LOC: ER 13:31
DX: R33.9 Retention of urine, unspecified (principal); Z88.8 Allergy status to other drugs, medicaments and biological substances; Z79.2 Long term (current) use of antibiotics; Z79.899 Other long term (current) drug therapy
CPT/HCPCS: 51702; 96372; 99284; A4314; A4340; A4358; J2270